=== PATIENT | male | born 1950 | race Caucasian/White ===

== ENCOUNTER → 2025-07-18 09:02 | Outpatient (REF) | payer MEDICARE, OTHER, SELFPAY ==
[2025-07-18 10:13] LABS: Hematocrit 41.5 % (39.0-52.0); Hemoglobin 14.5 g/dL (13.0-18.0); Mean Corp Hgb Conc. 34.9 g/dL (33.0-37.0); Mean Corpuscular Volume 91.2 fL (80.0-94.0); Platelet Count 190 10^3/uL (130-400); Red Cell Dist. Width 13.0 % (11.5-14.5)
[2025-07-18 10:41] LABS: Blood Urea Nitrogen 12 mg/dl (9-20); Calcium 9.4 mg/dl (8.4-10.2); Carbon Dioxide 30 mmol/L (22-30); Chloride 103 mmol/L (98-107); Glucose 89 mg/dl (70-99); Potassium 4.3 mmol/L (3.5-5.1); Sodium 139 mmol/L (135-145); eGFR > 60.00
== END ==
LOC: SDSPAT 09:02
PROVIDERS: ATTENDING PHYSICIAN Surgery; FAMILY PHYSICIAN Family Medicine
DX: Z01.818 Encounter for other preprocedural examination (principal)
CPT/HCPCS: 36415; 80048; 85027; 93005

== ENCOUNTER 2025-08-03 06:12 | Day surgery (SDC) | payer MEDICARE, OTHER, SELFPAY ==
[2025-07-18 14:19] VITALS: BMI 24.2
[2025-08-03] VITALS (8 sets, daily range): BP systolic 130–158; BP diastolic 72–99; BMI 24.2
[2025-08-03] MEDS: TYLENOL 1000 MG PO (07:56)
[2025-08-03] MEDS: NORMOSOL-R/PLASMALYTE-A 1000 IV (07:56)
[2025-08-03] MEDS: DILAUDID 0.25 MG IV (11:20)
--- NOTE | 2025-08-03 11:27 | SUR.PHASEI ---
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 Pt medicated as ordered and sent to [facility]. Pt agreeeable.
[2025-08-03] MEDS: ROXICODONE 5 MG PO (12:02)
== END 2025-08-03 12:15 | disposition home or self-care (01) ==
LOC: SDS 06:12
PROVIDERS: ATTENDING PHYSICIAN Surgery; FAMILY PHYSICIAN Family Medicine
DX: K40.90 Unilateral inguinal hernia, without obstruction or gangrene, not specified as recurrent (principal)
CPT/HCPCS: 49650; C1781